=== PATIENT | male | born 1940 | race Caucasian/White ===

== ENCOUNTER 2022-12-30 12:50 | Observation (INO) | payer MEDICARE ==
[2022-12-30 13:31] LABS: #Basophils 0.1 10x3/uL (0.0-0.2); #Eosinphils 0.3 10x3/uL (0.0-0.5); #Monocytes 0.9 10x3/uL (0.0-1.1); #Neutrophils 6.1 10x3/uL (1.5-8.4); %Basophils 0.6 % (0.0-2.0); %Eosinophils 2.9 % (0.0-6.0); %Lymphocytes 21.9 % (18.0-47.0); %Monocytes 9.1 % (0.0-10.0); %Neutrophils 65.1 % (40.0-75.0); Hemoglobin 15.3 g/dL (13.5-17.5); Mean Corpuscular HGB CONC 33.8 g/dL (32.0-36.0); Mean Corpuscular Hemoglobin 31.8 pg (27.0-33.0); Mean Corpuscular Volume 94.2 fl (81.2-95.1); Platelet Count 221 10x3/uL (150-450); RBC Distribution Width 13.8 % (11.5-14.5); Red Blood Cell (RBC) Count 4.81 10x6/uL (4.32-5.72); White Blood Cell (WBC) Count 9.4 10x3/uL (3.5-10.5)
[2022-12-30 13:58] LABS: ALT (SGPT) 8 U/L (8-55); AST (SGOT) 20 U/L (5-34); Alkaline Phosphatase 90 U/L (40-110); Anion Gap 14 mmol/L (10-20); BUN (Urea Nitrogen) 11 mg/dL (8.4-25.7); Bilirubin, Total 0.9 mg/dL (0.2-1.2); Calc. Creatinine Clearance 0 mL/min (70-130); Calcium 8.8 mg/dL (7.8-10.44); Carbon Dioxide 25 mmol/L (23-31); Chloride 105 mmol/L (98-107); Estimated GFR 87; Globulin 2.5 g/dL (2.4-3.5); Glucose 104 mg/dL (83-110); Potassium 4.4 mmol/L (3.5-5.1); Protein, Total 6.5 g/dL (5.8-8.1); Sodium 140 mmol/L (136-145)
[2022-12-30] MEDS ORDERED: Aspirin Chewable 81 MG TAB ONE (14:55)
[2022-12-30] MEDS: Ventolin HFA Inhaler 60 PUFF INHALER INH SCH ×2 (17:27→20:21)
[2022-12-30 18:28] VITALS: BMI 28.6
[2022-12-30] MEDS: Mometasone/Formoterol 200/5 60 PUFF INH SCH (20:20)
[2022-12-30] MEDS: Atorvastatin Calcium 40 MG TAB PO SCH (22:31)
[2022-12-30] MEDS: QUEtiapine 25 MG TAB PO SCH (22:32)
[2022-12-30] MEDS: Donepezil HCl 5 MG TAB PO SCH (22:32)
[2022-12-30] MEDS: Icosapent Ethyl 1 GM CAPSULE PO SCH (22:32)
[2022-12-31] MEDS ORDERED: Sodium Chloride 0.9% 500 ML IV SCH (02:15)
[2022-12-31 05:12] LABS: #Basophils 0.1 10x3/uL (0.0-0.2); #Eosinphils 0.3 10x3/uL (0.0-0.5); #Monocytes 0.7 10x3/uL (0.0-1.1); #Neutrophils 5.6 10x3/uL (1.5-8.4); %Basophils 0.6 % (0.0-2.0); %Eosinophils 2.9 % (0.0-6.0); %Monocytes 8.4 % (0.0-10.0); %Neutrophils 64.6 % (40.0-75.0); Hemoglobin 14.1 g/dL (13.5-17.5); Mean Corpuscular HGB CONC 34.2 g/dL (32.0-36.0); Mean Corpuscular Hemoglobin 32.1 pg (27.0-33.0); Mean Corpuscular Volume 93.8 fl (81.2-95.1); Mean Platelet Volume 10.8 fl (7.4-10.4); Platelet Count 202 10x3/uL (150-450); RBC Distribution Width 13.9 % (11.5-14.5); Red Blood Cell (RBC) Count 4.39 10x6/uL (4.32-5.72); White Blood Cell (WBC) Count 8.6 10x3/uL (3.5-10.5)
[2022-12-31 05:18] LABS: ALT (SGPT) 6 U/L (8-55); AST (SGOT) 14 U/L (5-34); Albumin 3.1 g/dL (3.4-4.8); Alkaline Phosphatase 69 U/L (40-110); Bilirubin, Direct 0.3 mg/dL (0.1-0.3); Bilirubin, Total 0.7 mg/dL (0.2-1.2); Protein, Total 5.2 g/dL (5.8-8.1)
[2022-12-31 05:19] LABS: Anion Gap 13 mmol/L (10-20); BUN (Urea Nitrogen) 12 mg/dL (8.4-25.7); Calc. Creatinine Clearance 87 mL/min (70-130); Calcium 8.1 mg/dL (7.8-10.44); Carbon Dioxide 22 mmol/L (23-31); Cardiac Risk 5.4 (Less than 4.5); Chloride 108 mmol/L (98-107); Cholesterol 118 mg/dl (< 200 Desired); Estimated GFR 91; Glucose 110 mg/dL (83-110); HDL Cholesterol 22 mg/dL (>60 Neg Risk); LDL Cholesterol, Calculated 71 mg/dL; Magnesium 2.1 mg/dL (1.6-2.6); Potassium 3.8 mmol/L (3.5-5.1); Sodium 139 mmol/L (136-145); Triglycerides 123 mg/dL (Less than 150)
[2022-12-31] MEDS: Ventolin HFA Inhaler 60 PUFF INHALER INH SCH ×4 (07:40→22:40)
[2022-12-31] MEDS: Mometasone/Formoterol 200/5 60 PUFF INH SCH ×2 (07:42→19:21)
[2022-12-31] MEDS ORDERED: Losartan Potassium 50 MG TAB PO SCH ×2 (09:00)
[2022-12-31] MEDS: Atenolol 25 MG TAB PO SCH (10:17)
[2022-12-31] MEDS: QUEtiapine 25 MG TAB PO SCH ×2 (10:18→21:01)
[2022-12-31] MEDS: Aspirin 81 mg Enteric Coated Tablet PO SCH (10:18)
[2022-12-31] MEDS: Multivit, Therapeutic 1 TAB PO SCH (10:18)
[2022-12-31] MEDS: Icosapent Ethyl 1 GM CAPSULE PO SCH ×4 (10:19→22:43)
[2022-12-31] MEDS ORDERED: Iopamidol 370 76% 100 ML VIAL ONE (11:35)
[2022-12-31] MEDS ORDERED: Clopidogrel Bisulfate 300 MG TAB PO SCH ×2 (13:45→20:30)
[2022-12-31] MEDS: Atorvastatin Calcium 40 MG TAB PO SCH (20:59)
[2022-12-31] MEDS: Donepezil HCl 5 MG TAB PO SCH (21:01)
[2023-01-01 04:45] LABS: #Basophils 0.1 10x3/uL (0.0-0.2); #Eosinphils 0.2 10x3/uL (0.0-0.5); #Monocytes 0.7 10x3/uL (0.0-1.1); %Basophils 0.6 % (0.0-2.0); %Eosinophils 2.7 % (0.0-6.0); %Lymphocytes 24.4 % (18.0-47.0); %Monocytes 8.4 % (0.0-10.0); %Neutrophils 63.6 % (40.0-75.0); Hemoglobin 13.7 g/dL (13.5-17.5); Mean Corpuscular HGB CONC 33.6 g/dL (32.0-36.0); Mean Corpuscular Hemoglobin 31.8 pg (27.0-33.0); Mean Corpuscular Volume 94.7 fl (81.2-95.1); Mean Platelet Volume 11.5 fl (7.4-10.4); Platelet Count 195 10x3/uL (150-450); RBC Distribution Width 13.9 % (11.5-14.5); Red Blood Cell (RBC) Count 4.31 10x6/uL (4.32-5.72); White Blood Cell (WBC) Count 7.9 10x3/uL (3.5-10.5)
[2023-01-01 05:02] LABS: Anion Gap 12 mmol/L (10-20); BUN (Urea Nitrogen) 9 mg/dL (8.4-25.7); Calc. Creatinine Clearance 80 mL/min (70-130); Calcium 8.1 mg/dL (7.8-10.44); Carbon Dioxide 23 mmol/L (23-31); Chloride 107 mmol/L (98-107); Estimated GFR 89; Glucose 125 mg/dL (83-110); Potassium 3.6 mmol/L (3.5-5.1); Sodium 138 mmol/L (136-145)
[2023-01-01] MEDS: Ventolin HFA Inhaler 60 PUFF INHALER INH SCH (07:52)
[2023-01-01] MEDS: Mometasone/Formoterol 200/5 60 PUFF INH SCH (07:53)
[2023-01-01] MEDS: Multivit, Therapeutic 1 TAB PO SCH (08:32)
[2023-01-01] MEDS: Aspirin 81 mg Enteric Coated Tablet PO SCH (08:32)
[2023-01-01] MEDS: QUEtiapine 25 MG TAB PO SCH (08:32)
[2023-01-01] MEDS: Atenolol 25 MG TAB PO SCH (08:32)
[2023-01-01] MEDS: Icosapent Ethyl 1 GM CAPSULE PO SCH (08:32)
[2023-01-01 08:46] VITALS: TEMP 98.4
[2023-01-01] MEDS ORDERED: Clopidogrel Bisulfate 75 MG TAB PO SCH (09:00)
[2023-01-01 11:26] VITALS: BP 115/72
== END 2023-01-01 10:38 | disposition home or self-care (01) ==
LOC: CSHERS 12:50 → SUATTDRO 12:50 → INTOOBSV 16:39 → CSHTELE 16:39
PROVIDERS: ADMIT Family Medicine; ATTEND Family Medicine
DX: R26.9 Unspecified abnormalities of gait and mobility (principal); I25.10 Atherosclerotic heart disease of native coronary artery without angina pectoris; I65.23 Occlusion and stenosis of bilateral carotid arteries; J84.9 Interstitial pulmonary disease, unspecified; F03.90 Unspecified dementia, unspecified severity, without behavioral disturbance, psychotic disturbance, mood disturbance, and anxiety; I10 Essential (primary) hypertension; E78.5 Hyperlipidemia, unspecified; J44.9 Chronic obstructive pulmonary disease, unspecified; E11.9 Type 2 diabetes mellitus without complications; E03.9 Hypothyroidism, unspecified; R47.1 Dysarthria and anarthria; I73.9 Peripheral vascular disease, unspecified; F17.210 Nicotine dependence, cigarettes, uncomplicated; Z86.73 Personal history of transient ischemic attack (TIA), and cerebral infarction without residual deficits; Z90.89 Acquired absence of other organs; Z95.828 Presence of other vascular implants and grafts; Z79.899 Other long term (current) drug therapy; Z79.82 Long term (current) use of aspirin; Z88.0 Allergy status to penicillin; Z88.5 Allergy status to narcotic agent; Z79.02 Long term (current) use of antithrombotics/antiplatelets; Z98.890 Other specified postprocedural states; Z86.79 Personal history of other diseases of the circulatory system
CPT/HCPCS: 70450; 70496; 70498; 70551; 71045; 80048 ×2; 80061; 80076; 82962; 83036; 83735 ×2; 84484; 85025 ×2; 93005; 93306; 93880; 94640 ×2; 94664; 94760 ×2; 95816; 95819; 95957; 96372 ×2; 97116; 97535; 99285; G0378 ×4; 36415; 36416; 51798; 80053; 84443; 93010; J1650; J7030; Q9967